=== PATIENT | female | born 2000 | race Caucasian/White ===

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

== ENCOUNTER 2022-03-09 01:38 | Emergency (ER) | payer MEDICAID ==
[2022-03-09] MEDS ORDERED: Sodium Chloride 0.9% 1,000 ML IV ONE (15:52)
[2022-03-09] MEDS ORDERED: Ondansetron 4 MG/2 ML SDV IV ONE (16:16)
[2022-03-09] MEDS ORDERED: Metoclopramide 10 MG/2 ML SDV IV ONE (16:43)
[2022-03-09] MEDS ORDERED: diphenhydrAMINE 50 MG/ML SDV IV ONE (16:46)
[2022-04-03 15:53] LABS: ANION GAP 14.6 mEq/L (7-13); CHLORIDE,CL 102 mmol/L (98-107); ESTIMATED GFR 127 mL/min (>=60); SODIUM,NA 136 mmol/L (136-145)
[2022-04-03 15:56] LABS: CORONAVIRUS COVID-19 NAA NEGATIVE (NEGATIVE)
== END 2022-03-09 18:15 | disposition home or self-care (01) ==
LOC: DL.ED 01:38 → EDSTATUS 08:05 → DL.ED 18:15
DX: O21.9 Vomiting of pregnancy, unspecified (principal); Z20.822 Contact with and (suspected) exposure to COVID-19; Z3A.08 8 weeks gestation of pregnancy
CPT/HCPCS: 0240U; 36415; 80053; 81001; 81003; 84702; 85025; 87086; 87491; 87563; 87591; 96361; 96374; 96375; 99283; 99284; J1200; J2405; J2765; J7030

== ENCOUNTER 2022-08-18 08:08 | Emergency (ER) | payer MEDICAID ==
[2022-08-18 08:23] VITALS: BP 120/76; PULSE 68
[2022-08-18] MEDS ORDERED: Sodium Chloride 0.9% 1,000 ML IV ONE ×2 (08:27→09:00)
[2022-08-18] MEDS ORDERED: Ondansetron 4 MG/2 ML SDV IVPUSH ONE (08:27)
[2022-08-18] MEDS ORDERED: fentaNYL 100 MCG/2 ML SDV IVPUSH ONE ×2 (09:00→12:31)
[2022-08-18 09:03] LABS: ANION GAP 15.8 mEq/L (7-13); CHLORIDE,CL 103 mmol/L (98-107); ESTIMATED GFR 107 mL/min (>=60); SODIUM,NA 141 mmol/L (136-145)
[2022-08-18] MEDS ORDERED: Iopamidol 612 MG/ML 100 ML Bottle IVPUSH ONE (09:55)
== END 2022-08-18 13:16 | disposition home or self-care (01) ==
LOC: DL.ED 08:08
DX: D50.8 Other iron deficiency anemias (principal); E28.2 Polycystic ovarian syndrome; J11.1 Influenza due to unidentified influenza virus with other respiratory manifestations; J45.909 Unspecified asthma, uncomplicated; E66.9 Obesity, unspecified; Z68.37 Body mass index [BMI] 37.0-37.9, adult; Z86.16 Personal history of COVID-19; Z79.899 Other long term (current) drug therapy
CPT/HCPCS: 36415; 74177; 76830; 80053; 81001; 83540; 83550; 83605; 83735; 84703; 85025; 86140; 96374; 96375; 96376; 99284; J2405; J3010; J7030; Q9967

== ENCOUNTER 2022-10-19 20:14 | Emergency (ER) | payer MEDICAID ==
[2022-10-19 20:22] VITALS: BP 129/76; PULSE 83
[2022-10-19] MEDS ORDERED: diphenhydrAMINE 50 MG/ML SDV IM ONE (21:22)
[2022-10-19] MEDS ORDERED: methylPREDNISolone Sodium Succinate 125 MG/2 ML SDV IM ONE (21:22)
== END 2022-10-19 21:47 | disposition home or self-care (01) ==
LOC: DL.ED 20:14
DX: L25.9 Unspecified contact dermatitis, unspecified cause (principal); J45.909 Unspecified asthma, uncomplicated; E66.9 Obesity, unspecified; Z68.37 Body mass index [BMI] 37.0-37.9, adult; Z86.16 Personal history of COVID-19; Z72.0 Tobacco use
CPT/HCPCS: 96372; 99283; J1200; J2930

== ENCOUNTER 2022-12-21 07:25 | Emergency (ER) | payer MEDICAID ==
[2022-12-21 07:37] VITALS: BP 118/75; PULSE 76
[2022-12-21] MEDS ORDERED: Sodium Chloride 0.9% 10 ML Syringe FLUSH PRN (07:46)
[2022-12-21] MEDS ORDERED: Ondansetron 4 MG/2 ML SDV IVPUSH ONE (07:47)
[2022-12-21] MEDS ORDERED: Sodium Chloride 0.9% 1,000 ML IV ONE (07:47)
[2022-12-21 07:54] LABS: BASOPHILS PERCENT AUTO 0.2 % (0.0-1.0); EOSINOPHILS PERCENT AUTO 0.4 % (1.0-3.0); HEMATOCRIT 36.4 % (37.0-47.0); HEMOGLOBIN 11.7 g/dL (12.0-16.0); LYMPHOCYTES PERCENT AUTO 10.1 % (20.5-50.1); MEAN CORPUSCULAR HEMOGLOBIN 23.4 pg (27.0-34.0); MEAN CORPUSCULAR HGB CONC 32.1 g/dL (33.0-35.0); MEAN CORPUSCULAR VOLUME 72.8 fL (80-100); MONOCYTES PERCENT AUTO 4.9 % (2-8); NEUTROPHILS PERCENT AUTO 84.4 % (42.2-75.2); PLATELET COUNT,PLT 337 10^3/uL (150-450); WHITE BLOOD CELL COUNT,WBC 13.8 10^3/uL (5.0-10.0)
[2022-12-21 08:04] LABS: BILIRUBIN,URINE NEGATIVE (NEGATIVE); COLOR,URINE YELLOW (YELLOW); GLUCOSE,URINE NEGATIVE (NEGATIVE); KETONES,URINE NEGATIVE (NEGATIVE); LEUKOCYTE ESTERASE,URINE NEGATIVE (NEGATIVE); NITRITE,URINE NEGATIVE (NEGATIVE); OCCULT BLOOD,URINE MODERATE (NEGATIVE); PH,URINE 5.5 (5.0-9.0); PROTEIN,URINE 30 (NEGATIVE); UROBILINOGEN,URINE 0.2 mg/dL (0.2-1.0)
[2022-12-21 08:05] LABS: APPEARANCE,URINE SLIGHTLY CLOUDY (CLEAR)
[2022-12-21 08:14] LABS: LACTIC ACID 1.7 mmol/L (0.4-2.0)
[2022-12-21 08:21] LABS: A/G RATIO 1.2; ALANINE AMINOTRANSFERASE,ALT 24 U/L (14-59); ALBUMIN 4.1 g/dL (3.4-5.0); ALKALINE PHOSPHATASE 74 U/L (46-116); ANION GAP 16.7 mEq/L (7-13); ASPARTATE AMNIOTRANSFERASE,AST 22 U/L (15-37); BILIRUBIN TOTAL 0.2 mg/dL (0.2-1.0); BLOOD UREA NITROGEN,BUN 14 mg/dL (7-18); BUN/CREATININE RATIO 15.7 (No establ ref range); CALCIUM 8.4 mg/dL (8.5-10.1); CARBON DIOXIDE,CO2 26 mmol/L (21-32); CHLORIDE,CL 105 mmol/L (98-107); CREATININE 0.89 mg/dL (0.55-1.02); EST CRCL DRUG DOSING (CG) 85.62 mL/min; GLUCOSE RANDOM 95 mg/dL (70-99); HCG QUALITATIVE,SERUM NEGATIVE (NEGATIVE); LIPASE 53 U/L (73-393); MAGNESIUM 1.8 mg/dL (1.8-2.4); POTASSIUM,K 3.7 mmol/L (3.5-5.1); PROTEIN TOTAL,TP 7.6 g/dL (6.4-8.2); SODIUM,NA 144 mmol/L (136-145)
[2022-12-21 08:23] LABS: C-REACTIVE PROTEIN < 0.2 mg/dL (0.0-0.9); ESTIMATED GFR 94 mL/min (>=60)
[2022-12-21 08:24] LABS: BACTERIA,URINE FEW /HPF (0-FEW/HPF); EPITHELIAL CELLS,URINE MODERATE /HPF (NOT SEEN); RBC,URINE 0-5 /HPF (0-5); WBC,URINE 0-5 /HPF (0-5/HPF)
[2022-12-21 08:25] LABS: YEAST,URINE RARE /HPF (NOT SEEN)
[2022-12-21 09:00] LABS: AMPHETAMINES,URINE NEGATIVE (NEGATIVE); BARBITURATES,URINE NEGATIVE (NEGATIVE); BENZODIAZEPINE,URINE NEGATIVE (NEGATIVE); MDMA (ECSTASY), URINE NEGATIVE (NEGATIVE); METHADONE,URINE NEGATIVE (NEGATIVE); METHAMPHETAMINES,URINE NEGATIVE (NEGATIVE); OPIATES,URINE NEGATIVE (NEGATIVE); OXYCODONE,URINE NEGATIVE (NEGATIVE); PHENCYCLIDINE,URINE NEGATIVE (NEGATIVE); TCA,URINE NEGATIVE (NEGATIVE)
== END 2022-12-21 09:16 | disposition home or self-care (01) ==
LOC: DL.ED 07:25
DX: R10.9 Unspecified abdominal pain (principal); R11.14 Bilious vomiting; D72.828 Other elevated white blood cell count; J45.909 Unspecified asthma, uncomplicated; E66.9 Obesity, unspecified; F17.290 Nicotine dependence, other tobacco product, uncomplicated; Z68.37 Body mass index [BMI] 37.0-37.9, adult; Z86.16 Personal history of COVID-19; Z79.899 Other long term (current) drug therapy
CPT/HCPCS: 36415; 80053; 80305; 81001; 83605; 83690; 83735; 84703; 85025; 86140; 96361; 96374; 99283; 99284; J2405; J7030; J3490

== ENCOUNTER 2023-08-25 11:30 | Emergency (ER) | payer BC, MEDICAID ==
[2023-08-25] MEDS: HYDROmorphone 0.5 MG/0.5 ML Syringe IVPUSH ONE (12:10)
[2023-08-25] MEDS: Sodium Chloride 0.9% 10 ML Syringe FLUSH ONE (12:11)
[2023-08-25 12:12] LABS: BASOPHILS PERCENT AUTO 0.1 % (0.0-1.0); EOSINOPHILS PERCENT AUTO 0.3 % (1.0-3.0); HEMATOCRIT 39.8 % (37.0-47.0); HEMOGLOBIN 13.1 g/dL (12.0-16.0); LYMPHOCYTES PERCENT AUTO 17.9 % (20.5-50.1); MEAN CORPUSCULAR HGB CONC 32.9 g/dL (33.0-35.0); MEAN CORPUSCULAR VOLUME 79.1 fL (80-100); MONOCYTES PERCENT AUTO 5.3 % (2-8); NEUTROPHILS PERCENT AUTO 76.4 % (42.2-75.2); PLATELET COUNT,PLT 328 10^3/uL (150-450); RED BLOOD CELL COUNT 5.03 10^6/uL (4.2-5.4); WHITE BLOOD CELL COUNT,WBC 7.2 10^3/uL (5.0-10.0)
[2023-08-25] MEDS: Sodium Chloride 0.9% 10 ML Syringe FLUSH PRN (12:15)
[2023-08-25 12:34] LABS: A/G RATIO 1.1; ALBUMIN 4.1 g/dL (3.4-5.0); ANION GAP 13.9 mEq/L (7-13); BILIRUBIN TOTAL 0.4 mg/dL (0.2-1.0); BUN/CREATININE RATIO 11.2 (No establ ref range); CALCIUM 8.9 mg/dL (8.5-10.1); CREATININE 0.98 mg/dL (0.55-1.02); EST CRCL DRUG DOSING (CG) 77.1 mL/min; MAGNESIUM 1.9 mg/dL (1.8-2.4); POTASSIUM,K 3.9 mmol/L (3.5-5.1); PROTEIN TOTAL,TP 7.7 g/dL (6.4-8.2)
[2023-08-25 13:00] LABS: APPEARANCE,URINE CLEAR (CLEAR); BILIRUBIN,URINE NEGATIVE (NEGATIVE); COLOR,URINE YELLOW (YELLOW); GLUCOSE,URINE NEGATIVE (NEGATIVE); KETONES,URINE NEGATIVE (NEGATIVE); LEUKOCYTE ESTERASE,URINE NEGATIVE (NEGATIVE); NITRITE,URINE NEGATIVE (NEGATIVE); OCCULT BLOOD,URINE TRACE-INTACT (NEGATIVE); PH,URINE 7.5 (5.0-9.0); PROTEIN,URINE NEGATIVE (NEGATIVE); UROBILINOGEN,URINE 0.2 mg/dL (0.2-1.0)
[2023-08-25 13:07] LABS: AMPHETAMINES,URINE NEGATIVE (NEGATIVE); BARBITURATES,URINE NEGATIVE (NEGATIVE); BENZODIAZEPINE,URINE NEGATIVE (NEGATIVE); MDMA (ECSTASY), URINE NEGATIVE (NEGATIVE); METHADONE,URINE NEGATIVE (NEGATIVE); METHAMPHETAMINES,URINE NEGATIVE (NEGATIVE); OPIATES,URINE NEGATIVE (NEGATIVE); OXYCODONE,URINE NEGATIVE (NEGATIVE); PHENCYCLIDINE,URINE NEGATIVE (NEGATIVE); TCA,URINE NEGATIVE (NEGATIVE)
[2023-08-25 13:16] LABS: BACTERIA,URINE FEW /HPF (0-FEW/HPF); EPITHELIAL CELLS,URINE MODERATE /HPF (NOT SEEN); RBC,URINE 0-5 /HPF (0-5); WBC,URINE 0-5 /HPF (0-5/HPF)
[2023-08-25] MEDS: Iopamidol 612 MG/ML 100 ML Bottle IVPUSH ONE (13:17)
[2023-08-25] MEDS: Sodium Chloride 0.9% 1,000 ML IV SCH (13:28)
[2023-08-25 13:31] VITALS: BP 99/56; PULSE 51
== END 2023-08-25 14:29 | disposition home or self-care (01) ==
LOC: DL.ED 11:30
DX: N83.202 Unspecified ovarian cyst, left side (principal); E66.9 Obesity, unspecified; Z86.16 Personal history of COVID-19; Z79.84 Long term (current) use of oral hypoglycemic drugs; Z79.899 Other long term (current) drug therapy
CPT/HCPCS: 36415; 74177; 80053; 80305-QW; 81001; 81025; 83605; 83735; 85025; 86140; 96374; 99284; 99284-25; J1170; J3490; J7030; Q9967

== ENCOUNTER 2023-10-28 10:04 | Emergency (ER) | payer SELFPAY ==
[2023-10-28] MEDS: Sodium Chloride 0.9% 1,000 ML IV ONE (10:35)
[2023-10-28] MEDS: Ondansetron 4 MG/2 ML SDV IVPUSH ONE (10:35)
[2023-10-28] MEDS: Ketorolac 30 MG/ML SDV IVPUSH ONE (10:35)
[2023-10-28] MEDS: Sodium Chloride 0.9% 10 ML Syringe FLUSH PRN (10:48)
[2023-10-28 10:57] VITALS: BP 124/79; PULSE 86
== END 2023-10-28 11:19 | disposition home or self-care (01) ==
LOC: DL.ED 10:04
DX: R11.2 Nausea with vomiting, unspecified (principal); T50.905A Adverse effect of unspecified drugs, medicaments and biological substances, initial encounter; E66.9 Obesity, unspecified; Z86.16 Personal history of COVID-19; Z79.899 Other long term (current) drug therapy; Z91.030 Bee allergy status; Z68.37 Body mass index [BMI] 37.0-37.9, adult
CPT/HCPCS: 96361; 96374; 96375; 99283; J1885; J2405; J7030; J3490

== ENCOUNTER 2024-08-01 21:47 | Emergency (ER) | payer SELFPAY ==
[2024-08-01 22:05] VITALS: BP 118/71; PULSE 96
[2024-08-01] MEDS: hydrOXYzine HCl 25 MG Tab PO ONE (22:19)
[2024-08-01] MEDS: Dexamethasone 4 MG/ML SDV PO ONE (22:19)
[2024-08-01] MEDS: Famotidine 20 MG Tab PO ONE (22:20)
== END 2024-08-01 22:42 | disposition home or self-care (01) ==
LOC: DL.ED 21:47
DX: L85.3 Xerosis cutis (principal); J45.909 Unspecified asthma, uncomplicated; E66.9 Obesity, unspecified; Z68.38 Body mass index [BMI] 38.0-38.9, adult; Z86.16 Personal history of COVID-19; Z91.030 Bee allergy status; Z79.84 Long term (current) use of oral hypoglycemic drugs; Z79.899 Other long term (current) drug therapy
CPT/HCPCS: 99282; A9270; J1100

== ENCOUNTER 2024-12-31 22:07 | Emergency (ER) | payer SELFPAY ==
[2024-12-31 22:19] VITALS: BP 124/75; PULSE 104
[2024-12-31] MEDS: Amoxicillin/Clavulanate K 875-125 MG Tab PO ONE (22:47)
[2024-12-31] MEDS: Dexamethasone 4 MG/ML SDV PO ONE (22:51)
== END 2024-12-31 23:15 | disposition home or self-care (01) ==
LOC: DL.ED 22:07
DX: H66.001 Acute suppurative otitis media without spontaneous rupture of ear drum, right ear (principal); Z91.030 Bee allergy status; Z79.899 Other long term (current) drug therapy; Z79.84 Long term (current) use of oral hypoglycemic drugs
CPT/HCPCS: 87081; 87428; 87430; 99283; A9270; J1100